=== PATIENT | female | born 1945 | race Caucasian/White ===

== ENCOUNTER 2024-12-22 07:53 | Day surgery (SDC) | payer MEDICARE, BC ==
[~2024-12-22] VITALS: Ht 152.4 cm; Wt 54.5 kg
[2024-12-22] VITALS (9 sets, daily range): BP systolic 113–143; BP diastolic 60–93; PULSE 71–88; RESP 14–20; O2SAT 97–100
[2024-12-22] MEDS ORDERED: [UNRECOGNIZED DRUG - OTHER] PO (08:26)
[2024-12-22] MEDS ORDERED: LOSA25TA41 PO (08:26)
[2024-12-22] MEDS ORDERED: ESOM40CA66 PO (08:26)
[2024-12-22] MEDS ORDERED: ASPI81TA52 PO (08:26)
[2024-12-22] MEDS ORDERED: AMLO10TA13 PO (08:26)
[2024-12-22] MEDS ORDERED: LEVO25TA7 PO (08:26)
--- NOTE | 2024-12-22 08:29 | ELECTROCARDIOGRAPH REPORT ---
[facility] Test Date: 2024-12-22 Test Time: 08:28:51 Pat Name: KEITH HERNANDEZ Department: [facility] Patient ID: [id number] Room: Gender: F Universal Grinder Tool: TENA : 1945 Requested By: FRANCISCO JAVIER MONROE Order Number: [id number] Reading MD: Dr. NURY Garcia Measurements Intervals [place] Rate: 79 P: 72 [place]: 182 QRS: 54 QRSD: 91 T: 53 QT: 391 QTc: 449 Interpretive Statements Sinus rhythm Consider left ventricular hypertrophy Electronically Signed On 12-22-2024 17:32:[address] NURY Garcia Please click the below link to view image of tracing.
[2024-12-22] MEDS ORDERED: ACET-1025 PO (08:31)
[2024-12-22 09:09] LABS: MEAN PLATELET VOLUME 8.3 FL (7.4-10.4); RED CELL DISTRIBUTION WIDTH 12.9 % (11.5-14.5)
[2024-12-22 09:15] LABS: INR 1.0 INR
[2024-12-22 09:16] LABS: CREATININE 0.40 MG/DL (0.40-0.90); TOTAL CARBON DIOXIDE 26.6 MMOL/L (24-32); eCRCL 79 ML/MIN; eGFR > 90 ML/MIN
[2024-12-22] MEDS: potassium Cl 20 mEq SR tablet PO STA (09:38)
[2024-12-22] MEDS: sodium bicarbonate 1meq/ml syr 150 ML in dextrose 5%-water 1,000 ML IV ONE (09:43)
[2024-12-22] MEDS ORDERED: LIDOcaine 1% (10mg/ml) 2ml vial ONE (09:48)
[2024-12-22] MEDS ORDERED: nitroGLYCERIN 500mcg/5mL D5W 5 ML IV ONE (09:49)
[2024-12-22] MEDS ORDERED: heparin 1,000unit/ml 10ml vial 10 ML ONE (09:49)
[2024-12-22] MEDS ORDERED: iohexol 350 MG/ML 50ML vial IV ONE (09:49)
[2024-12-22] MEDS ORDERED: fentaNYL/PF 50MCG/1 ML 2ML syringe ONE (09:49)
[2024-12-22] MEDS ORDERED: verapamil 2.5 mg/ml inj IV ONE (09:49)
[2024-12-22] MEDS ORDERED: midazolam 1 mg/ML 2ml injection ONE ×2 (09:49→10:31)
[2024-12-22] MEDS ORDERED: HYDROcodone/acetaminophen 5mg/325mg tablet PO PRN (12:10)
[2024-12-22] MEDS ORDERED: HYDROcodone/acetaminophen 10/325mg tab PO PRN (12:10)
[2024-12-22] MEDS ORDERED: TICA90TA2 PO (12:48)
--- NOTE | 2024-12-22 12:51 | CARDIOLOGY REPORT ---
DATE OF SERVICE: 12/22/2024 DICTATING PHYSICIAN: FRANCISCO JAVIER MONROE DO CARDIAC CATHETERIZATION REPORT REFERRING PHYSICIAN: Blanca Chavez MD. CLINICAL HISTORY: This 79-year-old woman has had recurring episodes of chest pain suggestive of angina pectoris. She has had a previous stress test approximately 2 years ago that did not show much in the way of reversible ischemia, but because of the new onset of chest pain and the nature of the pain, a cardiac catheterization was ordered. PROCEDURES PERFORMED: * Left heart catheterization. * Left ventriculography. * Selective coronary arteriography. * PTCA/stent placement. * 45 minutes conscious sedation and supervision. DESCRIPTION OF PROCEDURE: The patient was sedated with fentanyl and Versed. She was then prepared and draped in the usual manner. The right radial area was infiltrated with 1% lidocaine using a micropuncture set and a Seldinger technique. A 6-Albanian sheath was placed in the radial artery. 5,000 units of heparin were given in the peripheral IV and 200 mcg of nitroglycerin with 2.5 mg of verapamil were directly injected into the radial artery. Left heart catheterization and left ventriculography were performed using a 6-Albanian pigtail catheter. Coronary arteriography was performed using a 6-Albanian Kimny catheter. PTCA/stent placement: The left main coronary was engaged with a 6-Albanian 3.5 XB LAD guiding catheter. A Choice PT2 guidewire was passed down through and beyond a high-grade stenosis in the proximal LAD. The wire tip was positioned distally. The lesion was then dilated with a 2.5 x 15 mm balloon. The residual stenosis was covered with a 2.75 x 18 mm [place] drug-eluting stent deployed at 18 atmospheres. After test injections demonstrated stability of the treated area, final arteriography was performed. The arterial sheath was removed and Vasc band was applied. RESULTS: HEMODYNAMIC DATA: The left ventricular end diastolic pressure was 13 mmHg. There was only a 10 mm gradient across a sclerotic-appearing mitral valve. LEFT VENTRICULOGRAM: The left ventriculogram was technically satisfactory. The ejection fraction was at least 65%. There was heavy calcification of both left and right coronary, and there was also a heavily calcified mitral annulus. CORONARY ARTERIOGRAPHY: The coronary arteriograms are technically satisfactory. The patient had a right dominant system. RIGHT CORONARY ARTERY: The right coronary was a medium to large main stem vessel. There was a small to medium-sized posterior descending branch and a small caliber posterolateral branch. There were mild luminal irregularities with no obstructive lesions were present in this vessel. LEFT MAIN CORONARY ARTERY: The left main was a large nonobstructed vessel bifurcating into left anterior descending and circumflex coronary arteries. LEFT ANTERIOR DESCENDING CORONARY ARTERY: The LAD was a medium to large main stem vessel with a transapical distribution. There was a small to medium-sized proximal first diagonal and a similar small to medium-sized second diagonal taking its origin from the mid LAD. In the proximal LAD, there was a round calcified lucency, which appeared to take up at least 80% of the lumen. This lucency was remarkably uniform in appearance in multiple views, making it highly likely to be obstructive. The origin of the second diagonal was narrowed by about 90%, but the diameter was not bigger than 2 mm. CIRCUMFLEX CORONARY ARTERY: The circumflex was a large main stem vessel. There was a very large principal obtuse marginal branch. There were two small distal posterolateral branches. There were no obstructive lesions in the circumflex coronary artery. PTCA/STENT PLACEMENT: Following balloon angioplasty and stenting of the high-grade stenosis in the proximal LAD, there was no significant residual stenosis and brisk runoff distally. CONCLUSIONS: * Obstructive coronary artery disease, principally manifested as follows: A. 80% or greater stenosis of the proximal LAD. B. 90% stenosis at the origin of a small to medium-sized diagonal branch taking its origin from the mid-distal LAD. * Successful PTCA/stent placement directed at the proximal LAD stenosis. Following the intervention, there was no residual stenosis. JULISSA flow before and after intervention was graded as 3. * Left ventricular function appears to be normal. The estimated LVEF was 65%. * Sclerotic aortic valve with only a 10 mm peak gradient across the valve. RECOMMENDATIONS: Ongoing medical therapy. FRANCISCO JAVIER MONROE DO TID: [id number] RECEIPT: [id number] SHEREEN CARBONE
[2024-12-22] MEDS ORDERED: ondansetron/PF 4mg/2ml inj IV PRN (14:15)
[2024-12-22] MEDS ORDERED: ATOR40TA PO (14:16)
[2024-12-22] MEDS: ondansetron/PF 4mg/2ml inj IV PRN (14:23)
--- NOTE | 2024-12-22 14:29 | ELECTROCARDIOGRAPH REPORT ---
[facility] Test Date: 2024-12-22 Test Time: 13:55:28 Pat Name: KEITH HERNANDEZ Department: [facility] 1ST FLOOR Room: Gender: F [employer]ove[employer]: RENEE : 1945 Requested By: FRANCISCO JAVIER MONROE Order Number: [id number] Reading MD: Dr. NURY Garcia Measurements Intervals [place] Rate: 77 P: 74 [place]: 183 QRS: 54 QRSD: 94 T: 60 QT: 416 QTc: 471 Interpretive Statements Sinus rhythm Consider left ventricular hypertrophy Electronically Signed On 12-22-2024 17:32:[address] NURY Garcia Please click the below link to view image of tracing.
== END 2024-12-22 17:15 | disposition home or self-care (01) ==
LOC: SSTAY O 07:53
PROVIDERS: ATTEND Internal Medicine Cardiovascular Disease
DX: R07.9 Chest pain, unspecified (principal); I25.10 Atherosclerotic heart disease of native coronary artery without angina pectoris; I10 Essential (primary) hypertension; E03.9 Hypothyroidism, unspecified; K21.9 Gastro-esophageal reflux disease without esophagitis; F32.A Depression, unspecified; M81.0 Age-related osteoporosis without current pathological fracture; G47.30 Sleep apnea, unspecified; Z79.82 Long term (current) use of aspirin; Z79.890 Hormone replacement therapy; Z79.899 Other long term (current) drug therapy; Z90.49 Acquired absence of other specified parts of digestive tract; Z90.710 Acquired absence of both cervix and uterus; Z98.890 Other specified postprocedural states; Z88.5 Allergy status to narcotic agent; Z88.8 Allergy status to other drugs, medicaments and biological substances; Z82.49 Family history of ischemic heart disease and other diseases of the circulatory system
CPT/HCPCS: 36415; 80048; 83735; 85025; 85610; 93005; 93458; 99152; 99153; A6258; A6402; C1725; C1751; C1769; C1874; C1894; C9600; J1644; J2003; J2250; J2405; J3010; J3490; J7030; J7070; Q0163; Q9967; Z7610; A6449